=== PATIENT | male | born 1960 | race Caucasian/White ===

== ENCOUNTER 2019-09-07 06:55 | Outpatient (CLI) | payer BC, SELFPAY ==
--- NOTE | ~2019-09-07 | XR_ITS ---
XR knee LT 3V DATE: 09/07/2019 07:38 INDICATION: Left knee pain TECHNIQUE: 3 views COMPARISON: None FINDINGS: There is minimal periarticular spurring of the patella. There is mild enthesopathy of the s uperior pole of the patella at the quadriceps tendon insertion. Knee joint spaces are well preserved. No chondrocalcinosis or radiopaque intra-articular loose body. No fracture, dislocation, periosteal reaction or bone destruction or joint effusion. IMPRESSION: Minimal osteoarthritic periarticular spurring of the patella Reviewed, dictated and finalized at location A.
--- NOTE | ~2019-09-07 | CT_ITS ---
EXAMINATION: CT abdomen pelvis w con DATE: 09/07/2019 07:25 INDICATION: Abdominal pain for 2 weeks TECHNIQUE: Computed tomography (CT) of the abdomen and pelvis was performed with 100 cc Omnipaque 350 intravenous contrast. Automated exposure control and iterative reconstruction technique were employe d. Exam dose: 734.79 mGy-cm total exam DLP. COMPARISON: 08/04/2013 CT abdomen pelvis FINDINGS: The lung bases are clear of infiltrate or consolidation. Heart size is within normal range. No pleural or pericardial effusion. There are scattered hepatic and multiple splenic calcified granulomas, in addition to multiple left l ower lobe calcified pulmonary granulomas, consistent with old granulomatous disease. At least one gallstone measuring approximately 1.7 cm diameter is noted at the neck of the gallbladde r. No gallbladder wall thickening or pericholecystic fluid or stranding is noted. No intrahepatic or extrahepatic bile duct dilatation or pancreatic duct dilatation. No pancreatic mass lesion or calcifi cation. Several probable small hepatic cysts are noted. No splenic mass lesion. Normal morphology of the adrenal glands. Stable focal probable small lateral left renal scar, unchanged since 08/04/2013. No renal space occupy ing mass lesion or urinary tract calculus or hydroureteronephrosis is detected. Normal caliber of the abdominal aorta. No intraperitoneal or retroperitoneal or pelvic mass lesion or adenopathy or ascites. The urinary bladder is unremarkable. Moderate prominence of the prostate gland and minimal prostate c alcification. No bowel obstruction, bowel wall thickening, pneumatosis or intraperitoneal free air. No evidence of appendicitis. No suspicious osteolytic or osteoblastic lesions. IMPRESSION: Cholelithiasis Old granulomatous disease Probable small hepatic cysts Reviewed, dictated and finalized at Location [facility]. Reviewed, dictated and finalized at location A.
[2019-09-07 07:19] LABS: Estimated Glomerular Filt Rate > 60
== END 2019-09-07 06:56 | disposition home or self-care (01) ==
LOC: ANHIMG 06:59
PROVIDERS: PCP Internal Medicine; Visit Provider Nurse Practitioner
DX: M25.562 Pain in left knee (principal); R10.9 Unspecified abdominal pain; K80.20 Calculus of gallbladder without cholecystitis without obstruction; M76.892 Other specified enthesopathies of left lower limb, excluding foot
CPT/HCPCS: 36415; 73562; 74177; Q9967

== ENCOUNTER 2020-05-11 00:13 | Outpatient (CLI) | payer BC, SELFPAY ==
[2020-05-12 00:20] LABS: SARS-CoV-2 RNA PCR Negative
== END 2020-05-11 00:14 | disposition home or self-care (01) ==
LOC: ANHCOVIDDT 00:13
PROVIDERS: Family Provider Internal Medicine; PCP Internal Medicine; Visit Provider Surgery
DX: Z01.812 Encounter for preprocedural laboratory examination (principal); Z20.822 Contact with and (suspected) exposure to COVID-19
CPT/HCPCS: C9803; U0003; U0005

== ENCOUNTER 2020-05-15 00:02 | Day surgery (SDC) | payer BC, SELFPAY ==
[2020-04-30 08:30] VITALS: BMI 28.4
--- NOTE | 2020-05-14 13:02 | WPDANESEPPF ---
Anes - Initial Pre Proc Eval Procedure: Operation Date: 05/15/20 12:00 Proposed Procedures p Colonoscopy - Brad Gupta MD Date/Time: 05/14/20 13:02 Surgeon: Brad Gupta MD Pre Op Diagnosis: positive hemocult Patient Data Age: 59 Gender: M Height: 1.83 m Weight: 95 kg Allergies Allergy/AdvReac Type Severity Reaction Status Date / Time No Known Allergies Allergy Verified 05/15/20 08:26 Home Medications Medication Instructions Recorded Confirmed Type amlodipine 5 mg-valsartan 160 mg See Rx Instructions .ROUTE 03/06/20 05/15/20 Rx tablet .COMPLEX #90 tablet atorvastatin 20 mg tablet See Rx Instructions .ROUTE 03/06/20 05/15/20 Rx .COMPLEX #90 tablet Patient hx anesthesia problems: none Family hx anesthesia problems: none PMFSH Past Medical History Medical History (Updated 05/14/20 @ 13:03 by Nic Bernardo DO) Essential (primary) hypertension Mixed hyperlipidemia ELIZABETH (obstructive sleep apnea) CPAP Surgical History Surgical History H/O hernia repair belly button and groin History of appendectomy History of colonoscopy History of hip surgery Family History Family History Father Malignant neoplasm of prostate Family history of lymphoma Mother Hypertension Grandparent Diabetes mellitus Cerebrovascular accident Other Family history of Alzheimer's disease Family history of elevated blood lipids Social History Social History Smoking status: Never smoker Alcohol intake: never Substance use: never Substance use type: does not use Living arrangements: with family 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 Gender identity (if verbalized by the patient): Male Spiritual care concerns: No Anes - Eval Final PreProcedure Day of Procedure 05/14/20 13:02 Patient weight: overweight Heart: regular rate and rhythm Lungs: clear to auscultation and normal air movement Airway: Mallampati scale class II Neurological: alert and oriented Last oral intake: >/= 8 hours ASA classification: III Emergent: no Anesthetic plan: proceed Anesthesia type and monitoring: general GIVS and standard monitoring Informed Consent: The patient's anesthetic plan and its attendant risks and benefits were discussed with the patient/family/POA. Questions were solicited and answers provided to the satisfaction of the patient/family/POA.
[2020-05-15 08:29] VITALS: BP 131/73; PULSE 71; RESP 16; TEMP 36.8; O2SAT 100
[2020-05-15] MEDS: LACTATED RINGERS 1,000 ML 150 ML IV CONT (08:40)
--- NOTE | 2020-05-15 09:41 | WPDHPUPDATE1 ---
History and Physical Update Update Date/Time: 05/15/20 09:41 History and Physical has been reviewed, including an updated exam of the patient. There are NO changes in the patient's condition. Risks, benefits, and alternatives have been discussed and questions answered. Patient agrees to proceed with procedure.
--- NOTE | 2020-05-15 09:43 | PM.HPGS ---
History of Present Illness History of Present Illness Consent: Risks, benefits, and alternatives of a colonoscopy with possible biopsy, possible polypectomy have been discussed and questions answered. Patient agrees to proceed with procedure. Chief complaint: positive hemocult Narrative: Marcus Pickett is a 59 year old male that presents to the office at the request of Marcus Gupta NP for abdominal pain. Patient reports that for the last 4-6 weeks he has noticed he is having epigastric pain. Patient had a CT of the abdomen and pelvis with contrast on 09/07/2019 at [facility] that showed cholelithiasis, old granulomatous disease, and probable small hepatic cysts. He reports that he first time he had noticed the pain he had done a lot of physical activity moving brush in his yard. He thought that he had another hernia as he had one in the past. He reports that he had already had a 6 month follow up with his PCP and brought it up at that appointment. He reports that, that is when the CT scan was ordered. He stated he was told he had gallstones. He reports that since he has had the CT scan he is no longer having pain. He reports he is able to go about his day with no problem. He reports that he did not seem to notice that when he eats there was worsening of the pain. He had no polyps on his 2012 colonoscopy but it has been almost 10 years so we will proceed with another one now. Review of Systems Constitutional: Constitutional: Reports no additional constitutional complaints, Reports fatigue and Denies malaise Eyes: Eyes: Denies change in vision and Denies loss of vision ENT: Reports Normal hearing present, Denies change in voice, Denies dizziness, Denies hoarseness and Denies sore throat Cardiovascular: Cardiovascular: Denies chest pain, Denies leg edema and Denies dyspnea Respiratory: Respiratory: Denies cough, Denies dyspnea and Denies wheezing Gastrointestinal: Gastrointestinal: Denies hematochezia, Denies change in bowel habits and Denies heartburn Genitourinary: Genitourinary: Denies urinary frequency and Denies urinary incontinence Neurologic: Reports Normal hearing present, Denies confusion, Denies dizziness, Denies loss of vision, Denies memory loss and Denies seizure-like activity Psychiatric: Psychiatric: Denies confusion, Denies depression and Denies memory loss Endocrine: Endocrine: Denies cold intolerance and Reports fatigue Hematologic/Lymphatic: Hematologic/Lymphatic: Denies easy bleeding and Denies easy bruising Allergic/Immunologic: Allergic/Immunologic: Denies wheezing PMFSH Past Medical History Medical History (Updated 05/15/20 @ 09:47 by Brad Gupta MD) Essential (primary) hypertension Mixed hyperlipidemia ELIZABETH (obstructive sleep apnea) CPAP Surgical History Surgical History H/O hernia repair belly button and groin History of appendectomy History of colonoscopy History of hip surgery Family History Family History Father Malignant neoplasm of prostate Family history of lymphoma Mother Hypertension Grandparent Diabetes mellitus Cerebrovascular accident Other Family history of Alzheimer's disease Family history of elevated blood lipids Social History Social History Smoking status: Never smoker Alcohol intake: never Substance use: never Substance use type: does not use Living arrangements: with family 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
[2020-05-15 11:05] VITALS: BP 129/66; PULSE 78; RESP 20; O2SAT 100
[2020-05-15 11:15] VITALS: BP 119/79; PULSE 75; RESP 18; O2SAT 100
[2020-05-15 11:25] VITALS: BP 125/79; PULSE 69; RESP 21; O2SAT 100
== END 2020-05-15 11:42 | disposition home or self-care (01) ==
PROVIDERS: Family Provider Internal Medicine; PCP Internal Medicine; Visit Provider Surgery
PROC: 0DJD8ZZ Inspection of Lower Intestinal Tract, Via Natural or Artificial Opening Endoscopic (ICD-10-PCS; CPT 45378; principal; 2020-05-15 12:00)
DX: Z12.11 Encounter for screening for malignant neoplasm of colon (principal); D12.3 Benign neoplasm of transverse colon; D12.2 Benign neoplasm of ascending colon; K64.0 First degree hemorrhoids; R10.13 Epigastric pain; K80.20 Calculus of gallbladder without cholecystitis without obstruction; I10 Essential (primary) hypertension; E78.2 Mixed hyperlipidemia; G47.33 Obstructive sleep apnea (adult) (pediatric)
CPT/HCPCS: 45380; 88305; J2704; J7120

== ENCOUNTER → 2023-01-25 15:17 | Outpatient (CLI) | payer BC, SELFPAY ==
--- NOTE | ~2023-01-25 | XR_ITS ---
EXAM: XR knee LT 3V DATE: 01/25/2023 15:35 HISTORY: M25.562 - Pain medial left knee x 3=4 mos w/o injury . COMPARISON: 09/07/2019. FINDINGS: Normal mineralization. No fracture or dislocation. No lytic or blastic lesion. Mild medial joint space narrowing. Mild tricompartmental osteophytosis. Quadriceps enthesopathy. No erosion or p eriosteal change. Soft tissues within normal limits. IMPRESSION: Mild tricompartmental left knee osteoarthritis. Reviewed, dictated and finalized at location K.
== END ==
PROVIDERS: PCP Nurse Practitioner; Visit Provider Nurse Practitioner Family
DX: M17.12 Unilateral primary osteoarthritis, left knee (principal)
CPT/HCPCS: 73562

== ENCOUNTER 2023-06-17 00:09 | Day surgery (SDC) | payer BC, SELFPAY ==
[2023-05-25 11:48] VITALS: BMI 28.5
--- NOTE | 2023-06-15 08:13 | SUR.PREOP ---
Patient called regarding upcoming procedure. Voicemail left regarding appointment times.
--- NOTE | 2023-06-16 13:45 | P.HP_ITS ---
History of Present Illness History of Present Illness Consent: Risks, benefits, and alternatives have been discussed and questions answered. Patient agrees to proceed with procedure. Chief complaint: neoplasm screening Narrative: Marcus Pickett is a 63 year old male Referred for colon cancer screening. He had a colonoscopy about 12 years ago that I performed pre he also had 1 done by a surgeon about 3 years ago with finding of 2 small polyps. The histology is that they were tubular adenomas. Review of Systems Review of Systems: All systems reviewed & are unremarkable except as noted in HPI and below PMFSH Past Medical History Medical History CKD (chronic kidney disease) stage 2, GFR 60-89 ml/min Essential (primary) hypertension Mixed hyperlipidemia ELIZABETH (obstructive sleep apnea) CPAP Surgical History Surgical History H/O hernia repair belly button and groin History of appendectomy History of colonoscopy History of hip surgery Family History Family History Father Malignant neoplasm of prostate Family history of lymphoma Mother Hypertension Grandparent Diabetes mellitus Cerebrovascular accident Other Family history of Alzheimer's disease Family history of elevated blood lipids Social History Social History Smoking status: Never smoker Alcohol intake: never Substance use: never Substance use type: does not use Lack of Transportation: No Lack of Food: Never True Current Housing: I Have Housing Concerned About Future Housing: No Difficulty Paying Gas/Electric Bills: No Difficulty Paying for Meds: No Currently Unemployed: No Education: Bachelor's Degree Difficulty w/ Childcare or Family Care: No Living arrangements: with family Occupation/Education: occupation 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 Gender identity (if verbalized by the patient): Male Spiritual care concerns: No Meds Home Medications and Allergies Allergies Allergy/AdvReac Type Severity Reaction Status Date / Time No Known Allergies Allergy Verified 06/17/23 06:09 Exam Const: General: alert Orientation/consciousness: patient oriented x3 Resp: Auscultation: clear to auscultation bilaterally Cardio: Rhythm: regular rhythm GI: GI Palp: Yes Soft to palpation and No Tenderness to palpation present (GI) Neuro: General: patient oriented x3 Assessment and Plan Assessment and plan (1) Encounter for screening colonoscopy: Code(s): Z12.11 - Encounter for screening for malignant neoplasm of colon Status: Acute Assessment and Plan: Colonoscopy with possible biopsy or polypectomy or cautery or injection of substances.
[2023-06-17 06:10] VITALS: BP 127/67; PULSE 60; RESP 18; TEMP 36; O2SAT 100
[2023-06-17] MEDS: LACTATED RINGERS 1,000 ML 150 ML IV CONT (06:24)
--- NOTE | 2023-06-17 07:05 | WPDANESEPPF ---
Anes - Initial Pre Proc Eval Procedure: Operation Date: 06/17/23 07:30 Proposed Procedures p Screening Colonoscopy - Niraj Painter MD Date/Time: 06/17/23 07:05 Surgeon: Niraj Painter MD Pre Op Diagnosis: neoplasm screening Patient Data Age: 63 Gender: M Height: 1.83 m Weight: 93.3 kg Last Vital Signs Temp 36.0 C L 06/17/23 06:10 Pulse 60 06/17/23 06:10 Resp 18 06/17/23 06:10 BP 127/67 06/17/23 06:10 Pulse Ox 100 06/17/23 06:10 O2 Del Method Room Air 06/17/23 06:10 Allergies Allergy/AdvReac Type Severity Reaction Status Date / Time No Known Allergies Allergy Verified 06/17/23 06:09 Patient hx anesthesia problems: none Family hx anesthesia problems: none Results Review: All pre-operative results and documents have been reviewed as part of the pre-operative evaluation. [facility] Past Medical History Medical History CKD (chronic kidney disease) stage 2, GFR 60-89 ml/min Essential (primary) hypertension Mixed hyperlipidemia ELIZABETH (obstructive sleep apnea) CPAP Surgical History Surgical History H/O hernia repair belly button and groin History of appendectomy History of colonoscopy History of hip surgery Family History Family History Father Malignant neoplasm of prostate Family history of lymphoma Mother Hypertension Grandparent Diabetes mellitus Cerebrovascular accident Other Family history of Alzheimer's disease Family history of elevated blood lipids Social History Social History Smoking status: Never smoker Alcohol intake: never Substance use: never Substance use type: does not use Lack of Transportation: No Lack of Food: Never True Current Housing: I Have Housing Concerned About Future Housing: No Difficulty Paying Gas/Electric Bills: No Difficulty Paying for Meds: No Currently Unemployed: No Education: Bachelor's Degree Difficulty w/ Childcare or Family Care: No Living arrangements: with family Occupation/Education: occupation 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 Informed Consent: The patient's anesthetic plan and its attendant risks and benefits were discussed with the patient/family/POA. Questions were solicited and answers provided to the satisfaction of the patient/family/POA.
[2023-06-17 07:59] VITALS: BP 111/73; PULSE 59; RESP 18; O2SAT 100
[2023-06-17 08:09] VITALS: BP 126/82; PULSE 64; RESP 17; O2SAT 100
[2023-06-17 08:19] VITALS: BP 141/85; PULSE 61; RESP 21; O2SAT 100
== END 2023-06-17 08:22 | disposition home or self-care (01) ==
PROVIDERS: PCP Nurse Practitioner; Visit Provider Internal Medicine Gastroenterology
PROC: 0DJD8ZZ Inspection of Lower Intestinal Tract, Via Natural or Artificial Opening Endoscopic (ICD-10-PCS; CPT 45378; principal; 2023-06-17 07:30)
DX: Z12.11 Encounter for screening for malignant neoplasm of colon (principal); D12.3 Benign neoplasm of transverse colon; N18.2 Chronic kidney disease, stage 2 (mild); I12.9 Hypertensive chronic kidney disease with stage 1 through stage 4 chronic kidney disease, or unspecified chronic kidney disease; E78.2 Mixed hyperlipidemia; G47.33 Obstructive sleep apnea (adult) (pediatric)
CPT/HCPCS: 45385; 88305; J2704; J7120

== ENCOUNTER 2024-07-31 08:47 | Outpatient (CLI) | payer MEDICARE, SELFPAY | END 2024-07-31 08:48 | disposition home or self-care (01) | PROVIDERS: PCP Nurse Practitioner; Visit Provider Nurse Practitioner | DX: H90.3 Sensorineural hearing loss, bilateral (principal) | CPT/HCPCS: 92557; 92567 ==